=== PATIENT | male | born 1950 | race Caucasian/White ===

== ENCOUNTER 2021-02-21 19:27 | Emergency (ER) | payer BC ==
[2021-02-21 19:37] VITALS: BP 160/71; PULSE 67; TEMP 98.2; BMI 38.9
[2021-02-21 21:15] LABS: SARS COV-2 MOLECULAR Negative (Negative)
[2021-02-22 19:11] LABS: SARS-CoV-2 NAA Not Detected (Not Detected)
== END 2021-02-21 20:52 | disposition home or self-care (01) ==
LOC: JER 19:27
DX: Z11.52 Encounter for screening for COVID-19 (principal)
CPT/HCPCS: 99283-25; C9803; U0003; U0005